=== PATIENT | male | born 1945 | race Caucasian/White ===

== ENCOUNTER 2019-05-08 05:17 | Day surgery (SDC) | payer OTHER ==
[2019-05-07 19:53] VITALS: BMI 30.7
[2019-05-08] MEDS ORDERED: LIDOCAINE HCL 1%, 10 MG/ML (20ML VIAL) ONE (07:10)
[2019-05-08] MEDS ORDERED: BACITRACIN 15 GM TUBE TOPICAL OINTMENT ONE (07:10)
[2019-05-08] MEDS ORDERED: SUCCINYLCHOLINE CHLORIDE 200 MG/10 ML SYRINGE ONE (07:25)
[2019-05-08] MEDS ORDERED: PROPOFOL 20 ML ONE (07:25)
[2019-05-08] MEDS ORDERED: MIDAZOLAM HCL 2 MG/2 ML SINGLE DOSE VIAL ONE (07:26)
[2019-05-08] MEDS ORDERED: DEXAMETHASONE SOD PHOSPHATE 4 MG/1 ML VIAL ONE (08:02)
[2019-05-08] MEDS ORDERED: ceFAZolin SODIUM 1 GM VIAL IVPB ONE (08:02)
[2019-05-08] MEDS ORDERED: ONDANSETRON 4 MG/2 ML VIAL ONE (08:02)
[2019-05-08] MEDS ORDERED: ceFAZolin SODIUM 1 GM VIAL ONE (08:02)
[2019-05-08] MEDS ORDERED: LIDOCAINE HCL 1%, 10 MG/ML (20ML VIAL) INF ONE (08:15)
[2019-05-08] MEDS ORDERED: oxyCODONE HCL 5 MG TABLET PO PRN ×2 (08:21→08:59)
[2019-05-08] MEDS ORDERED: ONDANSETRON 4 MG/2 ML VIAL IVPUSH PRN (08:21)
[2019-05-08] MEDS ORDERED: LACTATED RINGERS SOLUTION 1,000 ML IV SCH (08:30)
[2019-05-08] MEDS ORDERED: DEXTROSE 5%-0.45% SALINE 1,000 ML IV SCH (09:00)
--- NOTE | 2019-05-08 09:01 | OP ---
Operative Note - Note: Operative Date: 05/08/19 Pre-Operative Diagnosis: rt spermatocele Operation: rt spermatocelectomy and hydrocelectomy Findings: rt spermatocele and hydrocele Post-Operative Diagnosis: Other (rt spermatocele and hydrocele) Anesthesia: General Specimens Removed: spermatocele and hydrocele sac Estimated Blood Loss (mls): 2 Drains & Tubes with Location: [facility] Operative Report Dictated: Yes
--- NOTE | 2019-05-08 09:49 | OP ---
DATE OF OPERATION: 05/08/2019 PREOPERATIVE DIAGNOSIS: Symptomatic right spermatocele. POSTOPERATIVE DIAGNOSIS: Right spermatocele and right hydrocele. PROCEDURE: Right spermatocelectomy and right hydrocelectomy. SURGEON: Luca Moctezuma M.D. INDICATIONS: Patient is a 74-year-old male with symptomatic right spermatocele on ultrasound who elected to undergo spermatocelectomy. Risks, benefits and alternatives were discussed including the risk of bleeding, infection, recurrence of the spermatocele or development of a new hydrocele, hematoma formation and the potential need for additional procedures. PROCEDURE: After informed consent was obtained, patient was placed supine on the operating room table. Cardiac monitors and general anesthesia were established. The right scrotum was prepped and draped in standard surgical fashion. Approximately a 4 cm right hemiscrotal incision was created with the No. 15 blade and the dartos layers were incised. Tunica vaginalis was identified and then the testicle with the spermatocele sac was removed out of the scrotum. The tunica vaginalis was incised with the cautery and then the hydrocele was noted and this hydrocele sac was excised with cautery and sent to Pathology for analysis. Then the spermatocele was identified, dissected out and, then at its communication with the epididymis, it was excised and ligated with a 3-0 Vicryl. All bleeding sites were cauterized. The testicle was then placed back in its normal anatomic position. The dartos layers were closed with interrupted 3-0 chromic and a 1/4-inch [place] drain was placed as well so that the wound was not completely closed and then the skin was closed with the 3-0 chromic in interrupted mattress fashion. Fluffs and a scrotal support were then placed. Patient awoken from anesthesia and transferred to the recovery room in stable condition. There were no complications. Estimated blood loss was minimal. LUCA MOCTEZUMA M.D. [id number]
[2019-05-08 15:19] VITALS: BP 106/64; PULSE 68; TEMP 97.8
--- NOTE | 2019-05-09 18:20 | PATH ---
Cytology Non-Gynecological Report Patient Name: INOCENTE WARD Med. Rec. #: [id number] /Age/Gender: 1945 (Age: 74) / M Account: [id number] Location: [facility] Taken: 05/08/2019 Received: 05/08/2019 Reported: 05/09/2019 Physicians: Gavino Partida M.D. Specimen(s) Received SPERMATOCELE FLUID Clinical History Right spermatocele, hydrocele Final Diagnosis SPERMATOCELE FLUID FOR CYTOLOGY: SATISFACTORY FOR EVALUATION. NEGATIVE FOR MALIGNANT CELLS. NUMEROUS SPERMATOZOA, FEW MACROPHAGES, AND DEGENERATED CELLS IN A BACKGROUND OF PROTEINACEOUS MATERIAL AND DEBRIS. Comment: See concurrent biopsy ([id number]). Electronically Signed Tamika Licona M.D. Gross Description Approximately 100 cc of cloudy fluid received fixed in 50% alcohol. One cytofunnel prepared and Pap stained. One cellblock prepared.
--- NOTE | 2019-05-09 18:57 | PATH ---
Surgical Pathology Report Patient Name: INOCENTE WARD [facility]. Rec. #: [id number] /Age/Gender: 1945 (Age: 74) / M Account: [id number] Location: [facility] Taken: 05/08/2019 Received: 05/08/2019 Reported: 05/09/2019 Physicians: Gavino Partida M.D. Specimen(s) Received A: HYDROCELE SAC, RIGHT B: SPERMATOCELE SAC, RIGHT Clinical History Right spermatocele Final Diagnosis A. HYDROCELE SAC, RIGHT, EXCISION: HYDROCELE SAC. B. SPERMATOCELE SAC, RIGHT SPERMATOCELECTOMY: FIBROMEMBRANOUS TISSUE LINED BY CUBOIDAL TO FLATTENED EPITHELIAL CELLS, FIBROMUSCULAR AND VASCULAR TISSUE, COMPATIBLE WITH SPERMATOCELE SAC. Comment: See concurrent cytology ([id number]). Electronically Signed Tamika Licona M.D. Gross Description A. Received in formalin labeled "right hydrocele sac" is a pink-samuel fibromembranous tissue measuring 3 x 0.7 x 0.5 cm. The specimen is serially sectioned and entirely submitted in one cassette. B. Received in formalin labeled "right spermatocele sac" is a pink-samuel fibromembranous measuring 5 x 2 x 1.5 cm. Milled Rubber Tender sections are submitted in one cassette. MAIRE/05/08/2019 conrad/05/08/2019
== END 2019-05-08 14:30 | disposition home or self-care (01) ==
LOC: JASU-SURG 05:17
PROVIDERS: ATTEND Urology
PROC: 0VBJ0ZZ Excision of Right Epididymis, Open Approach (ICD-10-PCS; 2019-05-08)
PROC: 0VB60ZZ Excision of Right Tunica Vaginalis, Open Approach (ICD-10-PCS; principal; 2019-05-08 07:30)
DX: N43.40 Spermatocele of epididymis, unspecified (principal); N43.3 Hydrocele, unspecified
CPT/HCPCS: 88108; 88302-TC; 88304-TC; 88305-TC; 94760

== ENCOUNTER 2019-07-24 16:32 | Emergency (ER) | payer OTHER ==
--- NOTE | 2019-07-24 16:54 | PDOC ---
History of Present Illness - General Chief Complaint: Injury Stated Complaint: LEFT SHOULDER PAIN INJURY Time Seen by Provider: 07/24/19 16:54 Past History - Past Medical History Allergies/Adverse Reactions: Allergies Allergy/AdvReac Type Severity Reaction Status Date / Time iodine Allergy Mild Rash Verified 07/24/19 16:35 ANGIOGRAM DYE Allergy Uncoded 07/24/19 16:35 Home Medications: Ambulatory Orders Alprazolam 0.5 mg PO BID 10/11/15 Aspirin Coated [Ecotrin -] 81 mg PO DAILY 10/11/15 Atorvastatin Ca [Lipitor] 80 mg PO HS 10/11/15 Clopidogrel Bisulfate [Plavix -] 75 mg PO DAILY 10/11/15 Ezetimibe [Zetia] 10 mg PO HS 10/11/15 Fenofibric Acid (Choline) [Trilipix] 135 mg PO DAILY 10/11/15 Folic Acid 1 mg PO DAILY 10/11/15 Gabapentin 1,800 mg PO DAILY 10/11/15 Lisinopril 10 mg PO DAILY 10/11/15 Metoprolol Succinate [Toprol Xl] 25 mg PO DAILY 10/11/15 Paroxetine HCl [Paxil -] 30 mg PO HS 10/11/15 Ranitidine [Zantac -] 150 mg PO DAILY 10/11/15 Risperidone 0.25 mg PO DAILY 10/11/15 Vitamin B Complex 1 each PO DAILY 10/11/15 Anemia: No Asthma: No Cancer: Yes (LARYNX-/RADIATION) Cardiac Disorders: Yes (CAD, STENT-2009) CVA: No COPD: No CHF: Yes Dementia: No Diabetes: No GI Disorders: No Disorders: No HTN: Yes Hypercholesterolemia: Yes Liver Disease: No Seizures: No Thyroid Disease: No - Surgical History Abdominal Surgery: No Appendectomy: No Cardiac Surgery: Yes (STENT) Cholecystectomy: No Lung Surgery: No Neurologic Surgery: No Orthopedic Surgery: No - Psycho Social/Smoking Cessation Hx Smoking History: Current every day smoker Have you smoked in the past 12 months: Yes Number of Cigarettes Smoked Daily: 10 'Breaking Loose' booklet given: 05/07/19 Hx Alcohol Use: Yes (occ) Drug/Substance Use Hx: No Substance Use Type: None Hx Substance Use Treatment: No Discharge - Discharge Information Problems reviewed: Yes Clinical Impression/Diagnosis: Shoulder injury Qualifiers: Encounter type: initial encounter Laterality: left Qualified Code(s): S49.92XA - Unspecified injury of left shoulder and upper arm, initial encounter Condition: Stable Disposition: HOME - Admission No - Follow up/Referral Referrals: Yan Ayala DO [Staff Physician] - - Patient Discharge Instructions Patient Printed Discharge Instructions: DI for Shoulder Pain Additional Instructions: You were seen in the ER for shoulder injury after a fall. Your xrays were negative. Please be sure to follow up with Orthopedics as soon as possible. In the meantime, take tylenol extra strength as needed for pain. Please return to the ER if you develop any weakness or numbness in the hand or arm. - Post Discharge Activity
[2019-07-24 17:01] VITALS: BP 120/79; PULSE 78; TEMP 98.4; BMI 30.7
--- NOTE | 2019-07-24 17:04 | PDOC ---
Attending Attestation - Resident Resident Name: Israel Escobedo - HPI HPI: 07/24/19 17:16 Pt presents to the ED complaining of L shoulder pain after falling backward onto his L shoulder. Patient was able to stand up immediately after the fall and denies LOC. Pain in the shoulder has been gradually worsening since the injury. Patient denies chest pain and was pain free prior to falling. States that the pain is minimal when he is not moving his arm, but that he has severe pain when he tries to abduct his shoulder. 07/24/19 17:22 - Physicial Exam PE: 07/24/19 17:21 Agree with resident exam. Patient is alert and oriented and is in no acute distress. No tenderness or deformity of the shoulder. Patient is unable to actively abduct his shoulder secondary to pain, but has no pain with passive abduction. 07/24/19 17:25 - Medical Decision Making 07/24/19 17:26 Pt presents to the ED complaining of shoulder pain after fall. Will check xrays to evaluate for fracture or dislocation and discharge home if negative.
[2019-07-24] MEDS ORDERED: ACETAMINOPHEN 325 MG TABLET (FP) PO ONE (17:14)
[2019-07-24] MEDS ORDERED: ACETAMINOPHEN 325 MG TABLET (FP) ONE (17:21)
== END 2019-07-24 18:18 | disposition home or self-care (01) ==
LOC: FER 16:32
DX: S49.92XA Unspecified injury of left shoulder and upper arm, initial encounter (principal); W18.39XA Other fall on same level, initial encounter; Y93.9 Activity, unspecified; Y92.9 Unspecified place or not applicable; I11.0 Hypertensive heart disease with heart failure; I50.9 Heart failure, unspecified; I25.10 Atherosclerotic heart disease of native coronary artery without angina pectoris; E78.5 Hyperlipidemia, unspecified; F17.210 Nicotine dependence, cigarettes, uncomplicated; Z95.5 Presence of coronary angioplasty implant and graft; Z91.048 Other nonmedicinal substance allergy status; Z91.041 Radiographic dye allergy status; Z85.21 Personal history of malignant neoplasm of larynx
CPT/HCPCS: 73030-TC-LT-FY; 99282-25

== ENCOUNTER 2021-08-08 16:02 | Inpatient (IN) | payer OTHER ==
[2021-08-08] MEDS ORDERED: ACETAMINOPHEN 1000 MG/100 ML BAG IVPB ONE (16:25)
[2021-08-08] MEDS ORDERED: SODIUM CHLORIDE 1,000 ML IV SCH (16:30)
[2021-08-08] MEDS ORDERED: LACTATED RINGERS SOLUTION 1000 ML INFUS.BAG IV ONE (17:06)
[2021-08-08] MEDS ORDERED: ACETAMINOPHEN INJECTION 100 ML IVPB ONE (17:08)
[2021-08-08 18:08] LABS: VENOUS BASE EXCESS -0.4 mmol/L (-2-2); VENOUS O2 SATURATION 63.7 % (70-80); VENOUS PCO2 37.9 mmHg (38-52); VENOUS PH 7.416 (7.310-7.410)
[2021-08-08 18:08] LABS: BASO % 0.6 % (0-2.0); EOS % 1.1 % (0-4.5); HEMATOCRIT 41.4 % (35.4-49); LYMPH % 7.1 % (8-40); MCH 32.7 pg (25.7-33.7); MCHC 33.8 g/dl (32.0-35.9); MEAN CELL VOLUME 96.9 fl (80-96); MEAN PLT VOLUME 8.4 fl (7.5-11.1); MONO % 4.9 % (3.8-10.2); NEUT % 86.3 % (42.8-82.8); PLATELET COUNT 212 10^3/uL (134-434); RBC 4.28 M/mm3 (4.00-5.60); RDW 13.9 % (11.9-15.9); WHITE BLOOD COUNT 7.8 K/mm3 (4.0-10.0)
[2021-08-08 18:24] LABS: INR 1.03 (0.83-1.09); PROTHROMBIN TIME (PATIENT) 12.1 SEC (9.7-13.0)
[2021-08-08 18:25] LABS: BLOOD UREA NITROGEN 14.9 mg/dL (7-18); CALCIUM 9.2 mg/dL (8.5-10.1)
[2021-08-08 18:26] LABS: ACTIVATED PTT 32.1 SECONDS (25.2-36.5); ALBUMIN 3.7 g/dl (3.4-5.0)
[2021-08-08] MEDS ORDERED: PIPERACILLIN/TAZOB 4.5 GM 4.5 GM in DEXTROSE 5%-WATER 100 ML IVPB ONE (18:27)
[2021-08-08] MEDS ORDERED: VANCOMYCIN HCL 1,500 MG in DEXTROSE 5%-WATER - 500 ML IVPB ONE (18:27)
[2021-08-08] MEDS ORDERED: AZITHROMYCIN IVPB 500 MG in DEXTROSE 5%-WATER - 250 ML IVPB ONE (18:27)
[2021-08-08 18:28] LABS: CREATININE 1.4 mg/dL (0.55-1.3)
[2021-08-08 18:30] LABS: BILIRUBIN,TOTAL 0.4 mg/dL (0.2-1); TOT PROT 6.9 g/dl (6.4-8.2)
[2021-08-08] MEDS ORDERED: AZITHROMYCIN IVPB 500 MG/250 ML BAG IVPB ONE (18:30)
[2021-08-08] MEDS ORDERED: PIPERACILLIN/TAZOB 4.5 GM 4.5 GM/100 ML BAG IVPB ONE (18:30)
[2021-08-08 18:34] LABS: LACTIC ACID 2.5 mmol/L (0.4-2.0)
[2021-08-08 19:07] LABS: URINE APPEARANCE CLEAR; URINE BILIRUBIN NEGATIVE (NEGATIVE); URINE COLOR YELLOW; URINE GLUCOSE (UA) NEGATIVE (NEGATIVE); URINE KETONE NEGATIVE (NEGATIVE); URINE LEUK ESTERASE NEGATIVE (NEGATIVE); URINE NITRITE NEGATIVE (NEGATIVE); URINE PROTEIN NEGATIVE (NEGATIVE); URINE UROBILINOGEN 0.2 mg/dL (0.2-1.0)
[2021-08-08] MEDS ORDERED: guaiFENesin 200 MG/10 ML 10 ML UNIT-DOSE CUPS PO PRN (21:18)
[2021-08-08] MEDS ORDERED: PARoxetine HCL 10 MG TABLET ONE (21:41)
[2021-08-08] MEDS: ATORVASTATIN CA 80 MG TABLET (FP) PO SCH (21:47)
[2021-08-08] MEDS ORDERED: PARoxetine HCL 30 MG TABLET PO SCH (22:00)
[2021-08-09 00:14] VITALS: BMI 30.4
[2021-08-09] MEDS ORDERED: ACETAMINOPHEN 325 MG TABLET (FP) PO ONE (00:58)
[2021-08-09] MEDS ORDERED: HEPARIN NA (PORCINE) 5,000 UNITS/ML 1ML VIAL SQ SCH (02:00)
[2021-08-09 08:29] LABS: BASO % 0.4 % (0-2.0); EOS % 1.4 % (0-4.5); HEMATOCRIT 35.9 % (35.4-49); HEMOGLOBIN 12.4 GM/dL (11.7-16.9); LYMPH % 13.7 % (8-40); MCH 33.1 pg (25.7-33.7); MCHC 34.6 g/dl (32.0-35.9); MEAN CELL VOLUME 95.8 fl (80-96); MEAN PLT VOLUME 8.5 fl (7.5-11.1); MONO % 7.4 % (3.8-10.2); NEUT % 77.1 % (42.8-82.8); PLATELET COUNT 182 10^3/uL (134-434); RBC 3.74 M/mm3 (4.00-5.60); RDW 13.8 % (11.9-15.9); WHITE BLOOD COUNT 9.2 K/mm3 (4.0-10.0)
[2021-08-09 08:44] LABS: CALCIUM 8.5 mg/dL (8.5-10.1)
[2021-08-09 08:45] LABS: ALBUMIN 3.1 g/dl (3.4-5.0); BLOOD UREA NITROGEN 17.1 mg/dL (7-18); MAGNESIUM 1.7 mg/dL (1.8-2.4)
[2021-08-09 08:48] LABS: CREATININE 1.2 mg/dL (0.55-1.3); PHOSPHOROUS 2.8 mg/dL (2.5-4.9)
[2021-08-09 08:49] LABS: BILIRUBIN,TOTAL 0.7 mg/dL (0.2-1)
[2021-08-09] MEDS ORDERED: DEXTROSE 5%-WATER - 50 ML IVPB ONE (09:00)
[2021-08-09] MEDS ORDERED: PT OWN MED DRAWER 7, Y5N ONE ×2 (09:00→21:25)
[2021-08-09] MEDS ORDERED: cefTRIAXone SODIUM 1 GM VIAL ONE (09:00)
[2021-08-09] MEDS: risperiDONE 0.25 MG TABLET PO SCH (10:47)
[2021-08-09] MEDS: CEFTRIAXONE 1 GM in DEXTROSE 5%-WATER - 50 ML IVPB SCH (10:47)
[2021-08-09] MEDS: FOLIC ACID 1 MG TABLET (FP) PO SCH (10:47)
[2021-08-09] MEDS: LISINOPRIL 10 MG TABLET PO SCH (10:47)
[2021-08-09] MEDS: ENOXAPARIN NA (PORCINE) 40 MG/0.4 ML DISP.SYRIN SQ SCH (10:47)
[2021-08-09] MEDS: ASPIRIN COATED 81 MG TABLET.EC PO SCH (10:47)
[2021-08-09] MEDS: CLOPIDOGREL BISULFATE 75 MG TABLET (FP) PO SCH (10:47)
[2021-08-09] MEDS: FENOFIBRIC ACID 135 MG CAP PO SCH (10:51)
[2021-08-09] MEDS: VITAMIN B COMPLEX W/C COMBO TABLET (FP) PO SCH (10:51)
[2021-08-09] MEDS: AZITHROMYCIN IVPB 250 MG in DEXTROSE 5%-WATER - 250 ML IVPB SCH (11:40)
[2021-08-09] MEDS ORDERED: MAGNESIUM SULF 50% (8.12 MEQ/2 ML-1 GM VIAL) IVPB ONE (13:09)
[2021-08-09] MEDS: GABAPENTIN 300 MG CAPSULE PO SCH (14:07)
[2021-08-09 15:50] LABS: ALLENS TEST POSITIVE; ARTERIAL BLD GAS O2 SATURATION 97.7 % (95-98); ARTERIAL BLOOD GAS BASE EXCESS 2.6 mmol/L (-2-2); ARTERIAL BLOOD GAS PO2 99.2 mmHg (80-100); ARTERIAL BLOOD GAS pH 7.443 (7.350-7.450)
[2021-08-09] MEDS: PAROXETINE HCL 20 MG, PAROXETINE HCL 10 MG PO SCH (21:36)
[2021-08-09] MEDS: ATORVASTATIN CA 80 MG TABLET (FP) PO SCH (21:36)
[2021-08-09] MEDS: NICOTINE 21 MG/24 HOURS TOPICAL PATCH TD PRN (21:36)
[2021-08-10] MEDS: MELATONIN 5 MG TABLETS PO PRN ×2 (02:38→21:02)
[2021-08-10] MEDS: ACETAMINOPHEN 325 MG TABLET (FP) PO PRN ×3 (02:38→18:33)
[2021-08-10 09:12] LABS: CALCIUM 8.7 mg/dL (8.5-10.1)
[2021-08-10 09:13] LABS: BLOOD UREA NITROGEN 16.6 mg/dL (7-18); MAGNESIUM 2.3 mg/dL (1.8-2.4)
[2021-08-10 09:15] LABS: BASO % 0.5 % (0-2.0); EOS % 2.4 % (0-4.5); HEMATOCRIT 36.8 % (35.4-49); HEMOGLOBIN 12.6 GM/dL (11.7-16.9); LYMPH % 17.8 % (8-40); MCHC 34.1 g/dl (32.0-35.9); MEAN CELL VOLUME 96.6 fl (80-96); MEAN PLT VOLUME 8.4 fl (7.5-11.1); MONO % 6.8 % (3.8-10.2); NEUT % 72.5 % (42.8-82.8); PLATELET COUNT 186 10^3/uL (134-434); RBC 3.81 M/mm3 (4.00-5.60); RDW 13.5 % (11.9-15.9); WHITE BLOOD COUNT 6.2 K/mm3 (4.0-10.0)
[2021-08-10 09:17] LABS: BILIRUBIN,TOTAL 0.8 mg/dL (0.2-1); TOT PROT 6.2 g/dl (6.4-8.2)
[2021-08-10] MEDS ORDERED: PT OWN MED DRAWER 7, Y5N ONE ×3 (09:31→20:50)
[2021-08-10] MEDS ORDERED: DEXTROSE 5%-WATER - 50 ML IVPB ONE (09:32)
[2021-08-10] MEDS ORDERED: cefTRIAXone SODIUM 1 GM VIAL ONE (09:32)
[2021-08-10] MEDS: ENOXAPARIN NA (PORCINE) 40 MG/0.4 ML DISP.SYRIN SQ SCH ×2 (10:57→11:26)
[2021-08-10] MEDS: LISINOPRIL 10 MG TABLET PO SCH (10:59)
[2021-08-10] MEDS: CLOPIDOGREL BISULFATE 75 MG TABLET (FP) PO SCH (10:59)
[2021-08-10] MEDS: GABAPENTIN 300 MG CAPSULE PO SCH (10:59)
[2021-08-10] MEDS: risperiDONE 0.25 MG TABLET PO SCH (10:59)
[2021-08-10] MEDS: FOLIC ACID 1 MG TABLET (FP) PO SCH (11:03)
[2021-08-10] MEDS: CEFTRIAXONE 1 GM in DEXTROSE 5%-WATER - 50 ML IVPB SCH (11:04)
[2021-08-10] MEDS: AZITHROMYCIN IVPB 250 MG in DEXTROSE 5%-WATER - 250 ML IVPB SCH (11:04)
[2021-08-10] MEDS: FENOFIBRIC ACID 135 MG CAP PO SCH (12:02)
[2021-08-10] MEDS: VITAMIN B COMPLEX W/C COMBO TABLET (FP) PO SCH (12:02)
[2021-08-10] MEDS: ASPIRIN COATED 81 MG TABLET.EC PO SCH (12:12)
[2021-08-10 18:08] LABS: SARS-CoV-2 NAA Not Detected (Not Detected)
[2021-08-10] MEDS: NICOTINE 21 MG/24 HOURS TOPICAL PATCH TD PRN (18:33)
[2021-08-10] MEDS: PAROXETINE HCL 20 MG, PAROXETINE HCL 10 MG PO SCH (21:02)
[2021-08-10] MEDS: ATORVASTATIN CA 80 MG TABLET (FP) PO SCH (21:02)
[2021-08-11] MEDS ORDERED: PT OWN MED DRAWER 7, Y5N ONE ×2 (08:53→17:57)
[2021-08-11] MEDS ORDERED: cefTRIAXone SODIUM 1 GM VIAL ONE (08:53)
[2021-08-11] MEDS ORDERED: DEXTROSE 5%-WATER - 50 ML IVPB ONE (08:53)
[2021-08-11 08:57] LABS: BASO % 0.6 % (0-2.0); EOS % 2.8 % (0-4.5); HEMATOCRIT 37.9 % (35.4-49); LYMPH % 20.3 % (8-40); MCHC 34.3 g/dl (32.0-35.9); MEAN CELL VOLUME 96.4 fl (80-96); MEAN PLT VOLUME 8.4 fl (7.5-11.1); MONO % 5.4 % (3.8-10.2); NEUT % 70.9 % (42.8-82.8); PLATELET COUNT 205 10^3/uL (134-434); RBC 3.93 M/mm3 (4.00-5.60); RDW 13.8 % (11.9-15.9)
[2021-08-11 09:08] LABS: CALCIUM 8.8 mg/dL (8.5-10.1)
[2021-08-11 09:09] LABS: BLOOD UREA NITROGEN 16.3 mg/dL (7-18)
[2021-08-11 09:22] VITALS: TEMP 97.9
[2021-08-11] MEDS: ENOXAPARIN NA (PORCINE) 40 MG/0.4 ML DISP.SYRIN SQ SCH (09:28)
[2021-08-11] MEDS: risperiDONE 0.25 MG TABLET PO SCH (09:28)
[2021-08-11] MEDS: ASPIRIN COATED 81 MG TABLET.EC PO SCH (09:28)
[2021-08-11] MEDS: GABAPENTIN 300 MG CAPSULE PO SCH (09:28)
[2021-08-11] MEDS: FOLIC ACID 1 MG TABLET (FP) PO SCH (09:30)
[2021-08-11] MEDS: FENOFIBRIC ACID 135 MG CAP PO SCH (09:31)
[2021-08-11] MEDS: VITAMIN B COMPLEX W/C COMBO TABLET (FP) PO SCH (09:31)
[2021-08-11] MEDS: CLOPIDOGREL BISULFATE 75 MG TABLET (FP) PO SCH (09:31)
[2021-08-11] MEDS: LISINOPRIL 10 MG TABLET PO SCH (09:31)
[2021-08-11] MEDS: CEFTRIAXONE 1 GM in DEXTROSE 5%-WATER - 50 ML IVPB SCH (09:32)
[2021-08-11] MEDS: AZITHROMYCIN IVPB 250 MG in DEXTROSE 5%-WATER - 250 ML IVPB SCH (10:50)
[2021-08-11 13:57] VITALS: BP 101/65
[2021-08-11 15:45] VITALS: PULSE 102
== END 2021-08-11 16:45 | disposition home or self-care (01) | DRG 193 ==
LOC: JER 16:02 → JERBED 18:41 → J4S 22:28
PROVIDERS: ADMIT Internal Medicine; ATTEND Nurse Practitioner Acute Care
DX: J18.9 Pneumonia, unspecified organism (principal); J96.02 Acute respiratory failure with hypercapnia; I24.8 Other forms of acute ischemic heart disease; N17.9 Acute kidney failure, unspecified; I13.0 Hypertensive heart and chronic kidney disease with heart failure and stage 1 through stage 4 chronic kidney disease, or unspecified chronic kidney disease; I50.40 Unspecified combined systolic (congestive) and diastolic (congestive) heart failure; I25.10 Atherosclerotic heart disease of native coronary artery without angina pectoris; G47.33 Obstructive sleep apnea (adult) (pediatric); R41.0 Disorientation, unspecified; I25.2 Old myocardial infarction; I12.9 Hypertensive chronic kidney disease with stage 1 through stage 4 chronic kidney disease, or unspecified chronic kidney disease; N18.9 Chronic kidney disease, unspecified; E78.00 Pure hypercholesterolemia, unspecified; I71.2 Thoracic aortic aneurysm, without rupture; F32.A Depression, unspecified; F41.9 Anxiety disorder, unspecified; E83.42 Hypomagnesemia; J32.9 Chronic sinusitis, unspecified
CPT/HCPCS: 36415; 36600; 70450-TC; 71045-TC-FY; 76775-TC; 80048; 80053; 80061; 81003; 82140; 82550; 82803; 83036; 83605; 83735; 83880; 84100; 84443; 84484; 85025; 85610; 85730; 86850; 86900; 86901; 87040; 87086; 87804; 87807; 93005; 93010; 93880-TC; 94660; 94761; 99285-25; C9803-CS; U0003; U0005

== ENCOUNTER 2022-01-24 15:00 | Emergency (ER) | payer OTHER ==
[2022-01-24 15:11] VITALS: TEMP 98.4; BMI 30.7
[2022-01-24] MEDS ORDERED: SODIUM CHLORIDE 500 ML IV STA (15:28)
[2022-01-24 16:26] LABS: HEMATOCRIT 38.4 % (35.4-49); HEMOGLOBIN 13.6 G/dL (11.7-16.9); MCH 34.6 pg (25.7-33.7); MCHC 35.4 g/dl (32.0-35.9); MEAN CELL VOLUME 97.8 fl (80-96); MEAN PLT VOLUME 8.1 fl (7.5-11.1); PLATELET COUNT 206.7 10^3/uL (134-434); RBC 3.93 10^6/uL (4.00-5.60); RDW 14.4 % (11.9-15.9); WHITE BLOOD COUNT 5.8 10^3/uL (4.0-10.8)
[2022-01-24 16:33] LABS: PLATELET ESTIMATE ADEQUATE
[2022-01-24 16:39] LABS: ALBUMIN 3.9 g/dl (3.4-5.0); BILIRUBIN,TOTAL 0.7 mg/dl (0.2-1); CALCIUM 9.6 mg/dl (8.5-10); CREATININE 1.4 mg/dl (0.55-1.3); TOT PROT 6.5 g/dl (6.4-8.2)
[2022-01-24 18:31] VITALS: BP 122/70; PULSE 65
== END 2022-01-24 18:30 | disposition home or self-care (01) ==
LOC: FER 15:00
DX: R55 Syncope and collapse (principal)
CPT/HCPCS: 36415; 70450-TC; 71045-TC-FY; 80053; 84484; 85027; 93005; 99285-25

== ENCOUNTER 2022-03-20 11:45 | Emergency (ER) | payer OTHER ==
[2022-03-20] MEDS ORDERED: BEBTELOVIMAB (EUA) 175 MG/2 ML VIAL IVPUSH ONE (12:05)
[2022-03-20 12:10] VITALS: PULSE 69; RESP 18; BMI 30.7
[2022-03-20 13:59] VITALS: BP 97/58; TEMP 97.9
== END 2022-03-20 13:15 | disposition home or self-care (01) ==
LOC: JER 11:45
DX: U07.1 COVID-19 (principal)
CPT/HCPCS: 99283-25; Q0222